=== PATIENT | male | born 1940 | race Caucasian/White ===

== ENCOUNTER 2019-05-10 15:50 | Emergency (ER) | payer MEDICARE, SELFPAY ==
[2019-05-10 15:54] VITALS: BP 186/94; PULSE 79; RESP 18; TEMP 36.4; O2SAT 100
--- NOTE | 2019-05-10 16:29 | ED_ITS ---
HPI - Extremity Problem General Chief complaint: Extremity Problem,Nontraumatic Stated complaint: pain in both legs, mostly the right leg Time Seen by Provider: 05/10/19 16:04 Source: patient Mode of arrival: Wheelchair Limitations: no limitations History of Present Illness HPI Narrative: 78-year-old male here for evaluation of bilateral with right being greater than left lower extremity pain. He states that it is localized into his right knee. He states that last evening is very difficult for him to sleep. No fevers. No trauma. He has had knee issues in the past. He does feel like his right knee is swelling but otherwise no leg swelling. Took some Tylenol for his symptoms. Related Data Previous Rx's Medication Instructions Recorded tramadol [Ultram] 50 mg PO BID PRN #10 tab 05/10/19 Allergies Allergy/AdvReac Type Severity Reaction Status Date / Time No Known Drug Allergies Allergy Verified 05/10/19 15:59 Review of Systems Constitutional Constitutional: Denies fever(s) Cardiovascular Cardiovascular: Denies chest pain and Denies dyspnea Respiratory Respiratory: Denies dyspnea Gastrointestinal Gastrointestinal: Denies abdominal pain Musculoskeletal Comments: Right knee pain Integumentary/Breasts Skin/Breast: Denies lesions and Denies rash Neurologic Neurologic: Denies behavioral changes Psychiatric Psychiatric: Denies behavioral changes Patient History Medical History Arthritis (Acute) Social History Smoking Status: Never smoker Smoking Status: Never smoker alcohol intake frequency: 0-2 drinks per day Substance Use Type: does not use Exam Initial Vital Signs Initial Vital Signs: Vital Signs Temperature 97.6 F 05/10/19 15:54 Pulse Rate 79 05/10/19 15:54 Respiratory Rate 18 05/10/19 15:54 Blood Pressure 186/94 H 05/10/19 15:54 Pulse Oximetry 100 05/10/19 15:54 Const General: cooperative and comfortable HENMT Head: normal to inspection and normocephalic Resp Effort & Inspection: normal respiratory effort Cardio Rate: regular rate Pulses: dorsalis pedis present bilaterally Skin Lesions: no lesions Rashes: no rashes Neuro General: alert, awake and oriented x3 Cognition: normal cognition Speech: speech normal Extrem Other: Right ankle unremarkable. Right foot unremarkable. Right hip unremarkable. Does have mild swelling to his right knee. Tenderness to palpation throughout his knee. Left lower extremity unremarkable. Course Orders Ordered: ED Orders 05/10/19 16:29 XR knee RT 3V Stat Vital Signs Vital signs: Vital Signs - 8 hr 05/10/19 15:54 05/10/19 16:57 05/10/19 17:00 Temperature 97.6 F Pulse Rate 79 78 Pulse Rate [Bilateral Dorsalis Pedis] 78 Respiratory Rate 18 18 Blood Pressure 186/94 H Blood Pressure [Left Arm] 190/89 H Pulse Oximetry 100 98 MDM - Extremity (Nontraumatic) Imaging Data Extremity x-ray #1: Radiologist's Impression: [address] [address] XRay Report Signed Patient: Cristian Suazo EMR#: [id number] : 3Acct:[id number] Age/Sex: 78 / MDate of Service: 05/10/19 Loc: ED Accession Number: [id number] Procedure: XR knee RT 3V Ordering Provider: Leonel Hilliard D.O. PROCEDURE: XR KNEE RT 3V INDICATIONS: pain and swelling TECHNIQUE: 3 views of the knee were acquired. COMPARISON: None. FINDINGS: Bones: No fractures or dislocations. No suspicious bony lesions. There is moderate medial femorotibial joint space narrowing seen, with associated remodeling changes including subchondral sclerosis and osteophyte formation along the jointline. Soft tissues: There is a large effusion. Calcification can be seen along the medial jointline, which is attributed to meniscal calcification. IMPRESSION: Large joint effusion. 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 Dictated by: Alex Anna M.D. on 05/10/2019 at 16:06 Approved by: Alex Anna M.D. on 05/10/2019 at 16:06 [facility] Narrative Medical decision making narrative: No fractures on the x-ray. Exam is not consistent with gout or infection. No trauma. Does have an effusion. He states that he did walk around more than normal yesterday and I suspect that he is having an arthritis flare because of that. Will hold on further workup for now. Patient does have a knee brace that he wears for comfort. Will provide slightly stronger pain medication than Tylenol for his symptoms. We did discuss the importance of avoiding falling. He was given return precautions and follow- up instructions. He expressed understanding and agreement with plan. Discharge Plan Departure Patient Disposition: Home Clinical Impression: Effusion of knee joint right Instructions: How To Perform RICE (Rest, Ice, Compress, Elevate) Activity Restrictions/Additional Instructions: You can wear the knee brace as needed for your comfort. Take the medication as directed. Contact your primary provider for follow-up. Prescriptions: New tramadol [Ultram] 50 mg tablet 50 mg PO BID PRN (Reason: pain) Qty: 10 RF: 0
[2019-05-10 16:57] VITALS: PULSE 78
[2019-05-10 17:00] VITALS: BP 190/89; PULSE 78; RESP 18; O2SAT 98
== END 2019-05-10 17:38 | disposition home or self-care (01) ==
PROVIDERS: Emergency Provider Emergency Medicine
DX: M25.461 Effusion, right knee (principal)
CPT/HCPCS: 73562; 99281; 99283